=== PATIENT | female | born 1960 | race Asian ===

== ENCOUNTER 2017-02-04 10:04 | Outpatient (CLI) | payer BC ==
[~2017-02-04 10:04] MED LIST: BENICAR20 MG PO; CIPRO500 MG OR; HYDR25TA60 PO; KLOR-CON M2020 MEQ OR
== END 2017-02-04 19:41 | disposition home or self-care (01) ==
LOC: RAD 10:04
DX: Z13.820 Encounter for screening for osteoporosis (principal); M81.0 Age-related osteoporosis without current pathological fracture

== ENCOUNTER 2017-08-12 08:51 | Outpatient (CLI) | payer BC | END 2017-08-12 19:08 | disposition home or self-care (01) | LOC: MAMMO 08:51 | DX: Z12.31 Encounter for screening mammogram for malignant neoplasm of breast (principal) ==

== ENCOUNTER 2017-09-08 09:18 | Outpatient (CLI) | payer BC | END 2017-09-08 22:14 | disposition home or self-care (01) | LOC: RAD 09:18 | DX: M25.521 Pain in right elbow (principal) ==

== ENCOUNTER 2018-04-01 11:04 | Emergency (ER) | payer BC ==
[~2018-04-01] VITALS: Ht 162.6 cm; Wt 73.5 kg
[2018-04-01 11:18] VITALS: TEMP 98.5
[2018-04-01 13:10] VITALS: BP 188/90
== END 2018-04-01 13:10 | disposition home or self-care (01) ==
LOC: ED 11:04
DX: M47.892 Other spondylosis, cervical region (principal); J32.9 Chronic sinusitis, unspecified
CPT/HCPCS: 99282

== ENCOUNTER 2018-05-08 15:16 | Emergency (ER) | payer BC ==
[~2018-05-08] VITALS: Ht 165.1 cm; Wt 71.7 kg
[2018-05-08 15:27] VITALS: TEMP 98
[2018-05-08] MEDS ORDERED: LOSA50TA PO (15:43)
[2018-05-08] MEDS ORDERED: GABA100C2 PO (15:44)
[2018-05-08 17:20] LABS: PLATELET COUNT 387 K/uL (152-353)
[2018-05-08 19:09] VITALS: BP 121/74
== END 2018-05-08 19:10 | disposition home or self-care (01) ==
LOC: ED 15:16
PROVIDERS: Family Medicine
DX: K29.70 Gastritis, unspecified, without bleeding (principal); R11.2 Nausea with vomiting, unspecified; E87.6 Hypokalemia
CPT/HCPCS: 36415; 80053; 81000; 82150; 83690; 85027; 99283

== ENCOUNTER 2018-11-16 10:24 | Outpatient (CLI) | payer OTHER ==
[~2018-11-16 10:24] MED LIST changes: +GABA100C2 PO; +LOSA50TA PO
== END 2018-11-16 23:43 | disposition home or self-care (01) ==
LOC: MAMMO 10:24
DX: Z12.31 Encounter for screening mammogram for malignant neoplasm of breast (principal)

== ENCOUNTER 2019-03-01 09:09 | Emergency (ER) | payer OTHER ==
[~2019-03-01] VITALS: Ht 162.6 cm; Wt 70.8 kg
[2019-03-01 09:20] VITALS: TEMP 97.9
[2019-03-01 10:14] LABS: POTASSIUM 3.7 mmol/L (3.6-5.2); SODIUM 141 mmol/L (136-145)
[2019-03-01 10:18] LABS: PLATELET COUNT 304 K/uL (152-353)
[2019-03-01 12:00] VITALS: BP 142/67
== END 2019-03-01 12:00 | disposition home or self-care (01) ==
LOC: ED 09:09
PROVIDERS: Emergency Medicine
DX: R07.89 Other chest pain (principal); R51 Headache
CPT/HCPCS: 36415; 80053; 82550; 82553; 84484; 85027; 85379; 93005; 96374; 96375; 99284; J2175; J2405

== ENCOUNTER 2019-11-20 12:14 | Emergency (ER) | payer OTHER ==
[~2019-11-20] VITALS: Ht 162.6 cm; Wt 70.8 kg
[2019-11-20 12:24] VITALS: TEMP 98.5
[2019-11-20 13:34] LABS: PLATELET COUNT 433 K/uL (152-353)
[2019-11-20 14:09] LABS: POTASSIUM 2.9 mmol/L (3.6-5.2)
[2019-11-20 14:27] LABS: PARTIAL THROMBOPLASTIN TIME 26.3 SECONDS (24.5-33.6)
[2019-11-20 14:44] VITALS: BP 159/95
== END 2019-11-20 14:52 | disposition home or self-care (01) ==
LOC: ED 12:14
PROVIDERS: Hospitalist
DX: M54.12 Radiculopathy, cervical region (principal); R07.89 Other chest pain; E87.6 Hypokalemia
CPT/HCPCS: 80053; 82550; 83880; 84484; 85027; 85610; 85730; 93005; 96374; 99284; J1885